=== PATIENT | female | born 1995 | race African-American/Black ===

== ENCOUNTER 2020-10-09 09:32 | Emergency (ER) | payer BC, MEDICAID ==
[~2020-10-09] VITALS: Ht 167.6 cm; Wt 81.6 kg
[2020-10-09 09:40] VITALS: BP 114/60
--- NOTE | 2020-10-09 10:03 | NUR ---
Patient discharged to home in stable condition. Written and verbal after care instructions given. Patient verbalizes understanding of instruction.
== END 2020-10-09 10:03 | disposition home or self-care (01) ==
LOC: ER 09:37
DX: J36 Peritonsillar abscess (principal)